=== PATIENT | female | born 1970 | race Caucasian/White ===

== ENCOUNTER 2019-05-02 18:08 | Emergency (ER) | payer OTHER ==
[2019-05-02 18:30] VITALS: TEMP 98.3; BMI 18.0
--- NOTE | 2019-05-02 18:33 | PDOC ---
Rapid Medical Evaluation Chief Complaint: Chest Pain Medical Evaluation: Allergies Allergy/AdvReac Type Severity Reaction Status Date / Time No Known Allergies Allergy Verified 05/02/19 18:27 Vital Signs Temp Pulse Resp BP Pulse Ox 98.3 F 68 18 122/79 100 05/02/19 18:27 05/02/19 18:27 05/02/19 18:27 05/02/19 18:27 05/02/19 18:27 05/02/19 18:31 I performed a brief in-person evaluation of this patient. 48-year-old female presents with chest pain that started while pushing something heavy at work, now with back pain. Pertinent physical exam findings: Pain worse with twisting movement. I have ordered the following: EKG. Patient to proceed to [facility] for further evaluation. Discharge Disposition - Diagnosis Chest pain - Referrals - Patient Instructions - Post Discharge Activity
--- NOTE | 2019-05-02 19:49 | PDOC ---
History of Present Illness - General Chief Complaint: Chest Pain Stated Complaint: CHEST PAINS/R/SIDED PAIN Time Seen by Provider: 05/02/19 19:25 History Source: Patient - History of Present Illness Initial Comments: 05/02/19 19:52 48 year old female c/o Right posterior chest pain worse with movement. denies pleurisy, shortness of breath. 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 denies fall or trauma PMHX: osteopororsis Past History - Past Medical History Allergies/Adverse Reactions: Allergies Allergy/AdvReac Type Severity Reaction Status Date / Time No Known Allergies Allergy Verified 05/02/19 18:27 Home Medications: Ambulatory Orders Ibuprofen 600 mg PO QID PRN #20 tablet 05/02/19 COPD: No Other medical history: OSTEOPROSIS - Immunization History Immunization Up to Date: Yes - Psycho Social/Smoking Cessation Hx Smoking History: Never smoked Hx Alcohol Use: No Drug/Substance Use Hx: No Review of Systems - Review of Systems Able to Perform ROS?: Yes Is the patient limited Icelandic proficient: No Cardiac (ROS): Yes: Chest Pain. No: Symptoms Reported, See HPI, Edema, Irregular Heart Rate, Lightheadedness, Palpitations, Syncope, Chest Tightness, Other Musculoskeletal: Yes: Back Pain *Physical Exam - Vital Signs Last Vital Signs Temp Pulse Resp BP Pulse Ox 98.3 F 72 18 120/76 98 05/02/19 18:27 05/02/19 20:26 05/02/19 20:26 05/02/19 20:26 05/02/19 20:26 - Physical Exam General Appearance: Yes: Appropriately Dressed Respiratory/Chest: positive: Chest Tender (right posterior chest tenderness pain is worse with movement to the left), Lungs Clear, Normal Breath Sounds Cardiovascular: positive: Regular Rhythm, Regular Rate Gastrointestinal/Abdominal: positive: Normal Bowel Sounds, Soft Extremity: positive: Normal Capillary Refill Integumentary: positive: Normal Color, Dry, Warm Neurologic: positive: Fully Oriented, Alert, Normal Mood/Affect Heart Score/ECG Review - ECG Intrepretation Rhythm: Regular Rhythm Comment:: 05/02/19 20:01 sinus bradycardia" 59 bpm ED Treatment Course - RADIOLOGY Radiology Studies Ordered: Category Date Time Status CHEST PA & LAT [RAD] Stat Radiology 05/02/19 19:25 Completed - Medications Given in the ED: ED Medications Discontinued Medications Generic Name Dose Route Start Last Admin Trade Name Agusq PRN Reason Stop Dose Admin Ketorolac Tromethamine 30 mg 05/02/19 19:55 05/02/19 20:23 Toradol Injection - IM 05/02/19 19:56 30 mg ONCE ONE Administration Medical Decision Making - Medical Decision Making costocondritis P: xray ekg NSAIDS Discharge - Discharge Information Problems reviewed: Yes Clinical Impression/Diagnosis: Costochondral chest pain Disposition: HOME - Additional Discharge Information Prescriptions: Ibuprofen 600 mg PO QID PRN #20 tablet PRN Reason: Pain - Follow up/Referral Referrals: Sebastian Matthews MD [Primary Care Provider] - - Patient Discharge Instructions Patient Printed Discharge Instructions: Costochondritis Additional Instructions: take ibuprofen every 6 hours as needed for pain follow up with your doctor as soon as possible. apply ice/ heat to the area. return to the ER for any worsening symptoms/ - Post Discharge Activity Work/Back to School Note: Back to Work
[2019-05-02] MEDS ORDERED: KETOROLAC TROMETHAMINE 30 MG/1 ML VIAL IM ONE (19:55)
[2019-05-02] MEDS ORDERED: KETOROLAC TROMETHAMINE 30 MG/1 ML VIAL ONE (20:16)
[2019-05-02 20:28] VITALS: BP 120/76; PULSE 72
--- NOTE | 2019-05-03 11:29 | EKG ---
Test Reason : Blood Pressure : / mmHG Vent. Rate : 059 BPM Atrial Rate : 059 BPM P-R Int : 184 ms QRS Dur : 084 ms QT Int : 414 ms P-R-T Axes : 072 077 069 degrees QTc Int : 409 ms SINUS BRADYCARDIA POSSIBLE LEFT ATRIAL ENLARGEMENT BORDERLINE ECG NO PREVIOUS ECGS AVAILABLE Confirmed by Shadi Kent MD ([id number]) on 05/03/2019 11:28:59 AM Referred By: Confirmed By:Shadi Kent MD
== END 2019-05-02 20:27 | disposition home or self-care (01) ==
LOC: JER 18:08
PROC: 3E0233Z Introduction of Anti-inflammatory into Muscle, Percutaneous Approach (ICD-10-PCS; principal; 2019-05-02)
DX: M94.0 Chondrocostal junction syndrome [Tietze] (principal); M81.8 Other osteoporosis without current pathological fracture
CPT/HCPCS: 71046-TC-FY; 93005; 93010; 99283-25